=== PATIENT | male | born 1950 | race Hispanic/Latino ===

== ENCOUNTER 2018-01-03 05:59 | Day surgery (SDC) | payer OTHER ==
[~2018-01-03] VITALS: Ht 157.5 cm; Wt 84.3 kg
[~2018-01-03 05:59] MED LIST: ATOR40TA71 PO; CLOP75TA32 PO; FOLI0.8C PO; HYDR-4068 PO; LISI40TA4 PO; TERA2CAP4 PO; TRAM50TA4 PO
[2018-01-03] MEDS ORDERED: SODIUM CHLORIDE 0.9% 1000ML 1,000 ML IV ONE (06:41)
[2018-01-03 06:44] VITALS: BP 120/68
[2018-01-03] MEDS ORDERED: PROPOFOL 10 MG/ML 20ML VIAL IV ONE (07:28)
[2018-01-03] MEDS ORDERED: FENTANYL CITRATE PF 50 MCG/1 ML 2ML VIAL ONE (07:28)
[2018-01-03] MEDS ORDERED: PHENYLEPHRINE HCL 10 MG/ML 1ML VIAL IV ONE (07:28)
[2018-01-03] MEDS ORDERED: GLYCOPYRROLATE 0.2 MG/ML 5 ML VIAL ONE (07:30)
[2018-01-03] MEDS ORDERED: EPHEDRINE-NS PF 50MG/5ML SYRINGE IV ONE (07:45)
[2018-01-03 07:51] VITALS: BP 83/47
== END 2018-01-03 08:25 | disposition home or self-care (01) ==
LOC: CANPRESDC → DAH 05:59
PROVIDERS: ATTEND Internal Medicine Gastroenterology
DX: Z12.11 Encounter for screening for malignant neoplasm of colon (principal); I10 Essential (primary) hypertension; E78.5 Hyperlipidemia, unspecified; N40.0 Benign prostatic hyperplasia without lower urinary tract symptoms; Z86.73 Personal history of transient ischemic attack (TIA), and cerebral infarction without residual deficits; Z68.37 Body mass index [BMI] 37.0-37.9, adult; Z79.899 Other long term (current) drug therapy
CPT/HCPCS: 93005; A4606; G0121; J2370; J2704; J3010; J3490 ×2; J7030

== ENCOUNTER → 2023-10-26 | Outpatient (CLI) | payer OTHER ==
[~2023-10-26] MED LIST changes: +IOHEXOL-350 75 ML VIAL IV ONE; -LISI40TA4 PO; +LISI40TA9 PO
== END | disposition home or self-care (01) ==
LOC: RAH 08:35
PROVIDERS: ATTEND Internal Medicine Gastroenterology
DX: N28.1 Cyst of kidney, acquired (principal); R93.429 Abnormal radiologic findings on diagnostic imaging of unspecified kidney
CPT/HCPCS: 74178; Q9967

== ENCOUNTER → 2024-02-22 | Outpatient (CLI) | payer OTHER ==
[~2024-02-22] MED LIST changes: -IOHEXOL-350 75 ML VIAL IV ONE
== END | disposition home or self-care (01) ==
LOC: RAH 08:39
PROVIDERS: ATTEND Family Medicine
DX: Z13.89 Encounter for screening for other disorder (principal); R09.89 Other specified symptoms and signs involving the circulatory and respiratory systems
CPT/HCPCS: 76775; 93880

== ENCOUNTER 2024-03-15 09:37 | Emergency (ER) | payer OTHER ==
[~2024-03-15] VITALS: Ht 157.5 cm; Wt 83.9 kg
[2024-03-15 10:24] LABS: APPEARANCE,URINE CLOUDY (CLEAR); BILIRUBIN,URINE NEGATIVE (NEGATIVE); COLOR,URINE RED (YELLOW); GLUCOSE, URINE (UA) NEGATIVE (NEGATIVE); KETONES,URINE NEGATIVE (NEGATIVE); LEUKOCYTE ESTERASE ,URINE NEGATIVE Leu/uL (NEGATIVE); NITRATE,URINE POSITIVE (NEGATIVE); OCCULT BLOOD,URINE LARGE (NEGATIVE); PROTEIN,URINE 100 mg/dL (NEGATIVE)
[2024-03-15 10:25] LABS: ADD UA MICROSCOPIC YES
[2024-03-15 10:41] LABS: BACTERIA,URINE Rare /HPF (None Seen); SQUAMOUS EPITHELIAL CELL,UR 0-2 /HPF (0-2); WBC,URINE 0-1 /HPF (0-1)
[2024-03-15 10:43] LABS: RBC,URINE 26-50 /HPF (0-1)
[2024-03-15] MEDS ORDERED: LEVO-70 PO (11:47)
[2024-03-15] MEDS ORDERED: TAMS-1 PO (11:47)
[2024-03-15] MEDS ORDERED: PHEN-847 PO (11:47)
[2024-03-15 11:49] VITALS: BP 126/72; PULSE 74; RESP 18; O2SAT 97
[2024-03-15] MEDS: LEVOFLOXACIN 500 MG TABLET PO SCH (11:56)
[2024-03-15] MEDS: PHENAZOPYRIDINE HCL 200 MG TABLET PO ONE (11:56)
== END 2024-03-15 12:27 | disposition home or self-care (01) ==
LOC: EDH 09:37
DX: R33.8 Other retention of urine (principal); N30.01 Acute cystitis with hematuria; R30.0 Dysuria; I10 Essential (primary) hypertension; Z79.02 Long term (current) use of antithrombotics/antiplatelets; Z79.899 Other long term (current) drug therapy; Z86.73 Personal history of transient ischemic attack (TIA), and cerebral infarction without residual deficits
CPT/HCPCS: 81001; 87088

== ENCOUNTER → 2024-05-29 | Outpatient (CLI) | payer OTHER ==
[~2024-05-29] MED LIST changes: +LEVO-70 PO; +PHEN-847 PO; +TAMS-1 PO
== END | disposition home or self-care (01) ==
LOC: SHCH 08:42
PROVIDERS: ATTEND Internal Medicine Cardiovascular Disease
DX: I08.3 Combined rheumatic disorders of mitral, aortic and tricuspid valves (principal); R06.02 Shortness of breath
CPT/HCPCS: 93306

== ENCOUNTER → 2024-06-12 | Outpatient (CLI) | payer OTHER | END | disposition home or self-care (01) | LOC: SHCH 08:40 | PROVIDERS: ATTEND Internal Medicine Cardiovascular Disease | DX: I73.9 Peripheral vascular disease, unspecified (principal); Z79.899 Other long term (current) drug therapy; I10 Essential (primary) hypertension; R06.02 Shortness of breath; E78.5 Hyperlipidemia, unspecified; I87.2 Venous insufficiency (chronic) (peripheral); I69.30 Unspecified sequelae of cerebral infarction | CPT/HCPCS: 93925; 93970 ==

== ENCOUNTER → 2024-06-14 | Outpatient (CLI) | payer OTHER ==
[2024-06-14] MEDS: REGADENOSON 0.4 MG/5 ML PF SYG IVP ONE (12:32)
== END | disposition home or self-care (01) ==
LOC: SHCH 08:29
PROVIDERS: ATTEND Internal Medicine Cardiovascular Disease
DX: R06.02 Shortness of breath (principal)
CPT/HCPCS: 78452; 93017; J2785; A9500 ×2; 96374